=== PATIENT | male | born 1995 | race Caucasian/White ===

== ENCOUNTER 2019-03-20 10:37 | Emergency (ER) | payer SELFPAY ==
--- NOTE | 2019-03-20 11:24 | ER Document Report ---
ED General - General Chief Complaint: General Weakness Stated Complaint: GENERAL WEAKNESS Time Seen by Provider: 03/20/19 10:58 Mode of Arrival: Ambulatory Information source: Patient Notes: This 24-year-old male presents emergency department with reports that he just does not feel well. Reports he just moved to [place] from [place]. Reports he has history of drug abuse. Reports a history of drug abuse for the past few years. Was clean for about 5 months when he recently used methamphetamine IV 4 days ago. He reports since that time he has been falling asleep, doesn't feel well, also reports is hard to void. Patient reports he has been taking Suboxone but has been out of it for 2 days. He did go to [facility] prior to arrival. They advised him to come to the emergency department. Denies fever vomiting reports some diarrhea. TRAVEL OUTSIDE OF THE [place] IN LAST 30 DAYS: No - HPI Onset: Other Onset/Duration: Persistent Quality of pain: No pain Severity: None Pain Level: Denies Associated symptoms: None Exacerbated by: Denies Relieved by: Denies Similar symptoms previously: No Recently seen / treated by doctor: No - Related Data Allergies/Adverse Reactions: ketorolac [From Toradol] Allergy (Verified 03/20/19 10:37) Past Medical History - General Information source: Patient - Social History Smoking Status: Current Every Day Smoker Cigarette use (# per day): Yes Frequency of alcohol use: None Drug Abuse: Methamphetamine Lives with: Family Family History: None Patient has suicidal ideation: No Patient has homicidal ideation: No Psychiatric Medical History: Reports: Hx Depression Past Surgical History: Reports: Hx Vascular Surgery Review of Systems - Review of Systems Notes: Review HPI for review of systems., All other systems negative Physical Exam - Vital signs Vitals: Temp Pulse Resp BP Pulse Ox 97.8 F 80 18 131/81 H 98 03/20/19 10:40 03/20/19 10:40 03/20/19 10:40 03/20/19 10:40 03/20/19 10:40 - General General appearance: Appears well, Alert In distress: None - HEENT Head: Normocephalic, Atraumatic Eyes: Normal Conjunctiva: Normal Extraocular movements intact: Yes Eyelashes: Normal Pupils: PERRL Ears: Normal External canal: Normal Tympanic membrane: Normal Mouth/Lips: Normal Mucous membranes: Moist Pharynx: Normal Neck: Normal, Supple. No: Lymphadenopathy - Respiratory Respiratory status: No respiratory distress Chest status: Nontender Breath sounds: Normal Chest palpation: Normal - Cardiovascular Rhythm: Regular Heart sounds: Normal auscultation Murmur: No - Abdominal Inspection: Normal Distension: No distension Bowel sounds: Normal Tenderness: Nontender Organomegaly: No organomegaly - Back Back: Normal, Nontender - Extremities General upper extremity: Normal ROM, Normal strength General lower extremity: Normal ROM, Normal strength, Normal weight bearing - Neurological Neuro grossly intact: Yes Cognition: Normal Orientation: AAOx4 [place] Coma Scale Eye Opening: Spontaneous Faby Coma Scale Verbal: Oriented [place] Coma Scale Motor: Obeys Commands [place] Coma Scale Total: 15 Speech: Normal - Psychological Associated symptoms: Normal affect, Normal mood - Skin Skin Temperature: Warm Skin Moisture: Dry Skin Color: Normal Course - Re-evaluation Re-evalutation: 03/20/19 11:24 24-year-old male with history of drug abuse. Recent IV meth use. Reports he has not felt well since that time. Also reports he has been out of his Suboxone for 2 days. Patient was given written information on opioid drug rehab outpatient treatment center. He was instructed to call to set up an appointment to obtain his Suboxone. 03/20/19 12:29 Labs unremarkable. Patient was instructed on all results. Instructed follow-up with injectable treatment center. 03/20/19 12:30 Upon discharge patient reports he needs antibiotics for an abscess tooth. He reports he had the abscess tooth for 2 years. He has not been able to have it fixed. Would like antibiotics. Patient was instructed to follow-up with dental. He was instructed on the [facility]. Patient became upset stood up and walked out of the emergency department. 03/20/19 11:46 03/20/19 11:46 MCV 89 fl (80-97) 03/20/19 11:46 MCH 31.1 pg (27.0-33.4) 03/20/19 11:46 MCHC 35.0 g/dL (32.0-36.0) 03/20/19 11:46 RDW 13.9 % (11.5-14.0) 03/20/19 11:46 Seg Neutrophils % 43.8 % (42-78) 03/20/19 11:46 Chloride 101 mmol/L (98-107) 03/20/19 11:46 Carbon Dioxide 29 mmol/L (22-30) 03/20/19 11:46 Anion Gap 7 (5-19) 03/20/19 11:46 Est GFR ( Amer) > 60 (>60) 03/20/19 11:46 Glucose 103 mg/dL (75-110) 03/20/19 11:46 Calcium 9.3 mg/dL (8.4-10.2) 03/20/19 11:46 Total Bilirubin 0.2 mg/dL (0.2-1.3) 03/20/19 11:46 AST 70 U/L (17-59) H 03/20/19 11:46 Alkaline Phosphatase 62 U/L (38-126) 03/20/19 11:46 Total Protein 6.1 g/dL (6.3-8.2) L 03/20/19 11:46 Albumin 4.0 g/dL (3.5-5.0) 03/20/19 11:46 Urine Color YELLOW 03/20/19 11:00 Urine Appearance CLOUDY 03/20/19 11:00 Urine pH 7.0 (5.0-9.0) 03/20/19 11:00 Ur Specific [place] 1.016 03/20/19 11:00 Urine Protein NEGATIVE mg/dL (NEGATIVE) 03/20/19 11:00 Urine Glucose (UA) NEGATIVE mg/dL (NEGATIVE) 03/20/19 11:00 Urine Ketones NEGATIVE mg/dL (NEGATIVE) 03/20/19 11:00 Urine Blood NEGATIVE (NEGATIVE) 03/20/19 11:00 Urine Nitrite NEGATIVE (NEGATIVE) 03/20/19 11:00 Ur Leukocyte Esterase NEGATIVE (NEGATIVE) 03/20/19 11:00 Urine WBC (Auto) 0 /HPF 03/20/19 11:00 Urine RBC (Auto) 2 /HPF 03/20/19 11:00 03/20/19 15:20 - Vital Signs Vital signs: Temp Pulse Resp BP Pulse Ox 97.9 F 80 14 125/77 97 03/20/19 12:42 03/20/19 12:42 03/20/19 12:42 03/20/19 12:42 03/20/19 12:42 - Laboratory Result Diagrams: 03/20/19 11:46 03/20/19 11:46 Laboratory results interpreted by me: 03/20/19 11:46 Sodium 136.9 L AST 70 H Total Protein 6.1 L Discharge - Discharge Clinical Impression: Drug abuse Condition: Stable Disposition: HOME, SELF-CARE Additional Instructions: *You have been evaluated for not feeling well, history of drug abuse *Rest, stay hydrated *Follow up with the [facility] tomorrow *Return to ED for worsening condition, changes, needs Forms: Elevated Blood Pressure
[2019-03-20 11:29] LABS: AMORPHOUS SEDIMENT,URINE TRACE /HPF; APPEARANCE,URINE CLOUDY; BILIRUBIN,URINE NEGATIVE (NEGATIVE); COLOR,URINE YELLOW; GLUCOSE, URINE NEGATIVE (NEGATIVE); KETONES,URINE NEGATIVE (NEGATIVE); LEUKOCYTE ESTERASE,URINE NEGATIVE (NEGATIVE); NITRITE,URINE NEGATIVE (NEGATIVE); PROTEIN,URINE NEGATIVE (NEGATIVE); URINE SPECIFIC GRAVITY 1.016; UROBILINOGEN,URINE NEGATIVE mg/dL (<2.0)
[2019-03-20 11:44] LABS: URINE AMPHETAMINES SCREEN NEGATIVE; URINE BARBITURATES SCREEN NEGATIVE; URINE BENZODIAZEPINES SCREEN UNCONFIRMED POSITIVE; URINE COCAINE SCREEN NEGATIVE; URINE MARIJUANA (THC) SCREEN NEGATIVE; URINE METHADONE SCREEN NEGATIVE; URINE PHENCYCLIDINE SCREEN NEGATIVE
[2019-03-20 11:56] LABS: ABSOLUTE BASOPHILS # (AUTO) 0.1 10^3/uL (0.0-0.2); ABSOLUTE EOSINOPHILS # (AUTO) 0.2 10^3/uL (0.0-0.6); ABSOLUTE LYMPHOCYTES (AUTO) 3.1 10^3/uL (0.5-4.7); ABSOLUTE MONOCYTES (AUTO) 0.7 10^3/uL (0.1-1.4); ABSOLUTE NEUT (AUTO) 3.1 10^3/uL (1.7-8.2); BASOPHILS % (AUTO) 1.2 % (0-2); EOSINOPHILS % (AUTO) 2.4 % (0-6); LYMPHOCYTES % (AUTO) 43.1 % (13-45); MEAN CORPUSCULAR HEMOGLOBIN 31.1 pg (27.0-33.4); MEAN CORPUSCULAR VOLUME 89 fl (80-97); MONOCYTES % (AUTO) 9.5 % (3-13); PLATELET COUNT 173 10^3/uL (150-450); RED CELL DISTRIBUTION WIDTH 13.9 % (11.5-14.0); SEGMENTED NEUTROPHILS % (AUTO) 43.8 % (42-78); TOTAL CELLS COUNTED % (AUTO) 100 %; WHITE BLOOD COUNT 7.2 10^3/uL (4.0-10.5)
[2019-03-20 12:17] LABS: ALKALINE PHOSPHATASE 62 U/L (38-126); ANION GAP 7 (5-19); ASPARTATE AMINO TRANSFERASE 70 U/L (17-59); BILIRUBIN,DIRECT 0.1 mg/dL (0.0-0.4); BILIRUBIN,TOTAL 0.2 mg/dL (0.2-1.3); BLOOD UREA NITROGEN 18 mg/dL (7-20); CALCIUM 9.3 mg/dL (8.4-10.2); CARBON DIOXIDE 29 mmol/L (22-30); CHLORIDE 101 mmol/L (98-107); GLUCOSE 103 mg/dL (75-110); POTASSIUM 4.4 mmol/L (3.6-5.0); TOTAL PROTEIN 6.1 g/dL (6.3-8.2)
[2019-03-20 12:50] VITALS: BP 125/77
== END 2019-03-20 12:50 | disposition home or self-care (01) ==
LOC: ER 10:37
DX: F19.10 Other psychoactive substance abuse, uncomplicated (principal); R53.1 Weakness; F17.210 Nicotine dependence, cigarettes, uncomplicated
CPT/HCPCS: 36415; 80053; 80307; 81001; 85025; 99284

== ENCOUNTER 2019-03-24 22:12 | Emergency (ER) | payer SELFPAY | END 2019-03-24 23:15 | disposition left against medical advice (07) | LOC: ER 22:12 | DX: Z53.21 Procedure and treatment not carried out due to patient leaving prior to being seen by health care provider (principal) ==

== ENCOUNTER 2019-03-25 15:10 | Emergency (ER) | payer SELFPAY ==
[2019-03-25 15:19] VITALS: BP 138/53
--- NOTE | 2019-03-25 16:37 | ER Document Report ---
ED Medical Screen (RME) - General Chief Complaint: Urinary Problem Stated Complaint: URINARY ISSUE Time Seen by Provider: 03/25/19 16:23 Mode of Arrival: Ambulatory Information source: Patient Notes: 24-year-old male with history of IV drug use presents to the emergency department with complaints that he is unable to void. He reports he can void but he has to strain and only a little bit comes out. Patient denies testicular pain. He complains of lower abdominal pain. He denies fever vomiting diarrhea complains of a headache. Patient also reports peripheral edema. I have greeted and performed a rapid initial assessment of this patient. A comprehensive ED assessment and evaluation of the patient, analysis of test results and completion of the medical decision making process will be conducted by additional ED providers. Dictation of this chart was performed using voice recognition software; therefore, there may be some unintended grammatical errors. TRAVEL OUTSIDE OF THE U.S. IN LAST 30 DAYS: No - Related Data Allergies/Adverse Reactions: ketorolac [From Toradol] Allergy (Verified 03/25/19 15:16) Past Medical History Psychiatric Medical History: Reports: Hx Depression Past Surgical History: Reports: Hx Vascular Surgery Physical Exam - Vital signs Vitals: Temp Pulse Resp BP Pulse Ox 97.9 F 95 18 138/53 H 97 03/25/19 15:19 03/25/19 15:19 03/25/19 15:19 03/25/19 15:19 03/25/19 15:19 Course - Vital Signs Vital signs: Temp Pulse Resp BP Pulse Ox 97.9 F 95 18 138/53 H 97 03/25/19 15:19 03/25/19 15:19 03/25/19 15:19 03/25/19 15:19 03/25/19 15:19
[2019-03-25] MEDS ORDERED: IBUPROFEN 800 MG TABLET PO ONE (16:56)
[2019-03-25 17:01] LABS: ABSOLUTE BASOPHILS # (AUTO) 0.1 10^3/uL (0.0-0.2); ABSOLUTE EOSINOPHILS # (AUTO) 0.2 10^3/uL (0.0-0.6); ABSOLUTE LYMPHOCYTES (AUTO) 3.2 10^3/uL (0.5-4.7); ABSOLUTE MONOCYTES (AUTO) 1.1 10^3/uL (0.1-1.4); ABSOLUTE NEUT (AUTO) 6.7 10^3/uL (1.7-8.2); BASOPHILS % (AUTO) 0.5 % (0-2); HEMATOCRIT 40.8 % (37.9-51.0); HEMOGLOBIN 14.1 g/dL (13.5-17.0); MEAN CORPUSCULAR HEMOGLOBIN 30.7 pg (27.0-33.4); MEAN CORPUSCULAR HGB CONC 34.5 g/dL (32.0-36.0); MEAN CORPUSCULAR VOLUME 89 fl (80-97); MONOCYTES % (AUTO) 9.7 % (3-13); PLATELET COUNT 180 10^3/uL (150-450); RED BLOOD COUNT 4.58 10^6/uL (4.35-5.55); RED CELL DISTRIBUTION WIDTH 14.2 % (11.5-14.0); SEGMENTED NEUTROPHILS % (AUTO) 59.8 % (42-78); TOTAL CELLS COUNTED % (AUTO) 100 %; WHITE BLOOD COUNT 11.3 10^3/uL (4.0-10.5)
[2019-03-25 17:17] LABS: ALBUMIN 4.7 g/dL (3.5-5.0); ALKALINE PHOSPHATASE 84 U/L (38-126); ANION GAP 10 (5-19); ASPARTATE AMINO TRANSFERASE 135 U/L (17-59); BILIRUBIN,DIRECT 0.2 mg/dL (0.0-0.4); BILIRUBIN,TOTAL 0.5 mg/dL (0.2-1.3); BLOOD UREA NITROGEN 20 mg/dL (7-20); CARBON DIOXIDE 28 mmol/L (22-30); CHLORIDE 99 mmol/L (98-107); GLUCOSE 90 mg/dL (75-110); POTASSIUM 4.3 mmol/L (3.6-5.0); TOTAL PROTEIN 7.2 g/dL (6.3-8.2)
--- NOTE | 2019-03-25 18:04 | RADIOLOGY REPORT (SQ) ---
EXAM DESCRIPTION: U/S RETROPERITON (RENAL/AORTA) COMPLETED DATE/TIME: 03/25/2019 5:50 pm REASON FOR STUDY: difficulty voiding, low abd pain COMPARISON: None. TECHNIQUE: Grayscale images acquired of the kidneys and bladder and recorded on PACS. Additional williams ected color Doppler images recorded. LIMITATIONS: None. FINDINGS: RIGHT KIDNEY: Measures 10.8 cm in length. Normal echogenicity. No hydronephrosis. LEFT KIDNEY: Measures 11.5 cm in length. Normal echogenicity. No hydronephrosis. BLADDER: Pre-void volume was measured at 380 mL, post-void volume was measured at 259 mL. IMPRESSION: 1. No hydronephrosis. 2. High post-void residual volume, concerning for urinary retention. TECHNICAL DOCUMENTATION: JOB ID: [id number] 2010 [employer]- All Rights Reserved Reading location - IP/workstation name: [email or web address]
[2019-03-25 18:13] LABS: AMORPHOUS SEDIMENT,URINE TRACE /HPF; APPEARANCE,URINE CLOUDY; BILIRUBIN,URINE NEGATIVE (NEGATIVE); COLOR,URINE YELLOW; GLUCOSE, URINE NEGATIVE (NEGATIVE); KETONES,URINE NEGATIVE (NEGATIVE); LEUKOCYTE ESTERASE,URINE NEGATIVE (NEGATIVE); NITRITE,URINE NEGATIVE (NEGATIVE); PROTEIN,URINE 30 mg/dL (NEGATIVE); URINE SPECIFIC GRAVITY 1.015; UROBILINOGEN,URINE NEGATIVE mg/dL (<2.0)
--- NOTE | 2019-03-25 19:23 | ER Document Report ---
HPI - HPI Patient complains to provider of: urinary retention Time Seen by Provider: 03/25/19 16:23 Pain Level: 5 Context: 24 Yr old male pt with the listed pmh, here for abdominal pain for x days. no trauma or injury. no hx of diabetes or asthma. normal bms. no uti sx. no testicular pain/swelling, penile dc/rash/lesions, or concerns for stds. denies swelling or hx of hernias. no abd surgeries unless otherwise noted. no recent abx or steroids. hasn't taken anything for sx. no hx of gerd, gb dz, pancreatitis, gi bleed, ulcers, ibs, or crohns. no hx of this before. no sick contacts. no uri sx. no rash. no excessive nsaid use or etoh. no recent illness. pain not worse with eating. denies changes in color or caliber of stool. no other associated sx. - ROS Systems Reviewed and Negative: Yes All other systems reviewed and negative - To include 10 systems, unless mentioned in the hpi. Past Medical History - General Information source: Patient - Social History Smoking Status: Current Every Day Smoker Frequency of alcohol use: None Drug Abuse: Marijuana Family History: None Patient has suicidal ideation: No Patient has homicidal ideation: No Psychiatric Medical History: Reports: Hx Depression Past Surgical History: Reports: Hx Vascular Surgery Vertical Provider Document - CONSTITUTIONAL Notes: >>>> PHYSICAL_EXAM: GENERAL_APPEARANCE: well_nourished, alert, cooperative, no_acute_distress, no obvious_discomfort. Pleasant, smiling, speaking in full sentences, easily sitting up, in no sign of pain or resp distress, nontoxic VITALS: reviewed, see vital signs table. HEAD: normocephalic. atraumatic. no francois signs. no raccoon eyes. EYES: PERRL, EOMI, (-)scleral icterus. NOSE: no_nasal_discharge. MOUTH: (-)decreased moisture. THROAT: no_tonsilar_inflammation/hypertrophy/exudate. no lymphadenopathy NECK: supple, no_neck_tenderness, full rom. full strength. no meningeal signs. BACK: no_back_tenderness. CHEST_WALL: no_chest_tenderness. LUNGS: no_wheezing, (-)accessory muscle use, good air exchange bilateral. HEART: normal_rate, normal_rhythm,, ABDOMEN: normal_BS, soft, abdomen-diffuse non-tender, (-)guarding, (-)rebound, no distension or peritoneal signs. neg murphys. neg mcburneys. neg heel strike. neg obturator. neg psoas. neg rovsign. no cva tenderness GENITALS: no_testicular_tenderness/swelling, no_urethral_discharge, no_inguinal_hernia, no_ulcers_or_lesions on the genitals, no_lacerations on the genitals, penis and testicles otherwise wnl. exam chaperoned by ed nurse. pt consented to exam. exam without incident. RECTAL: deferred EXTREMITIES: strength 5/5 in all_extremities, good pulses in all_extremities, no_edema, no_swelling\tenderness. full rom. normal gait. brisk cap refill. good hand director [employer] services. SKIN: warm, dry, good_color, no _rash. no grossly visible overlying skin changes to suggest trauma unless otherwise noted. NEURO: motor_intact, sensory_intact. cranial nerves 2-12 intact, cerebellar fxn intact MENTAL_STATUS: normal_affect, speech_clear, oriented_X_3, responds_appropr iately to questions. - INFECTION CONTROL TRAVEL OUTSIDE OF THE U[place] IN LAST 30 DAYS: No Course - Re-evaluation Re-evalutation: 03/25/19 20:31 Pt here for . advised to f/u with pcp in 1-2 days. return for any worsening symptoms. vss. well appearing. satting well on ra. neurononfocal. pt understands and agrees to plan. On reexam, pt improved with tx listed. remained stable. nontoxic. well appearing. pain controlled. tolerating po. requesting to go home. case discussed with ER Attending, Dr. whitten, who directed and agrees with plan of care and advised no further workup indicated at this time and pt is stable for dc home with close f/u with pcp/specialist. Documentation achieved through voice recording which may lead to some occasional accidental typographical errors. Extensive efforts have been made to proof read documentation to make sure these are the least as possible. Category Date Time Status [place] Leg Bag (ED) NOW Care 03/25/19 20:18 Ordered Patient Education-Urinary Cath [RC] DAILY Care 03/25/19 20:19 Ordered Patient Education-Urinary Cath [RC] PRN Care 03/25/19 20:18 Ordered Urinary Cath Obs & Care [RC] QSHIFT Care 03/25/19 20:19 Ordered Urinary Cath Removal Criteria [RC] DAILY Care 03/25/19 20:19 Ordered Urinary Catheter Insertion [RC] NOW Care 03/25/19 20:[address] ABD/PELVIS NO ORAL OR IV [CT] Stat Exams 03/25/19 19:45 Completed U/S RETROPERITON (RENAL/AORTA) [US] Stat Exams 03/25/19 16:35 Completed CBC WITH DIFF [HEME] Stat Lab 03/25/19 16:46 Completed [facility] PCR URINE INHOUSE [MO] Stat Lab 03/25/19 19:21 Ordered CK [CREATINE KINASE] [CHEM] Stat Lab 03/25/19 20:18 Ordered COMPREHENSIVE METABOLIC PANEL [CHEM] Stat Lab 03/25/19 16:46 Completed URINALYSIS [URIN] Stat Lab 03/25/19 16:46 Completed URINE CULTURE [MC] Stat Lab 03/25/19 20:18 Uncollected URINE DRUG SCREEN [CHEM] Stat Lab 03/25/19 19:44 Uncollected Ibuprofen [Motrin 800 mg Tablet] Med 03/25/19 16:56 Discontinued 800 mg PO NOW ONE Lidocaine HCl [Xylocaine 2% Uro-Jet 5 ml Kit] Med 03/25/19 20:30 Once 5 ml MM NOW ONE Lidocaine/Tetracaine/Epi [L.e.t. Topical Soln 5 ml] Med 03/25/19 20:29 Discontinued 5 ml TOP NOW ONE 03/25/19 20:50 - Vital Signs Vital signs: Temp Pulse Resp BP Pulse Ox 97.9 F 95 18 138/53 H 97 03/25/19 15:19 03/25/19 15:19 03/25/19 15:19 03/25/19 15:19 03/25/19 15:19 03/25/19 20:50 Temp Pulse Resp BP Pulse Ox 03/25/19 15: 97.9 F 95 18 138/53 H 97 - Laboratory Result Diagrams: 03/25/19 16:46 03/25/19 16:46 Laboratory results interpreted by me: 03/25/19 03/25/19 03/25/19 16:46 16:46 16:46 WBC 11.3 H RDW 14.2 H AST 135 H Urine Protein 30 H Urine Blood SMALL H 03/25/19 20:50 Labs- Entire Visit 03/25/19 03/25/19 03/25/19 16:46 16:46 16:46 WBC 11.3 H RBC 4.58 Hgb 14.1 Hct 40.8 MCV 89 MCH 30.7 MCHC 34.5 RDW 14.2 H Plt Count 180 Lymph % (Auto) 28.0 [place] % (Auto) 9.7 Eos % (Auto) 2.0 Baso % (Auto) 0.5 Absolute Neuts (auto) 6.7 Absolute Lymphs (auto) 3.2 Absolute Monos (auto) 1.1 Absolute Eos (auto) 0.2 Absolute Basos (auto) 0.1 Seg Neutrophils % 59.8 Sodium 137.0 Potassium 4.3 Chloride 99 Carbon Dioxide 28 Anion Gap 10 BUN 20 Creatinine 0.65 Est GFR ( Amer) > 60 Est GFR (MDRD) Non-Af > 60 Glucose 90 Calcium 10.0 Total Bilirubin 0.5 Direct Bilirubin 0.2 Neonat Total Bilirubin Not Reportable Neonat Direct Bilirubin Not Reportable Neonat Indirect Bili Not Reportable AST 135 H ALT 268 Alkaline Phosphatase 84 Creatine Kinase Total Protein 7.2 Albumin 4.7 Urine Color YELLOW Urine Appearance CLOUDY Urine pH 7.0 Ur Specific [place] 1.015 Urine Protein 30 H Urine Glucose (UA) NEGATIVE Urine Ketones NEGATIVE Urine Blood SMALL H Urine Nitrite NEGATIVE Urine Bilirubin NEGATIVE Urine Urobilinogen NEGATIVE Ur Leukocyte Esterase NEGATIVE Urine RBC (Auto) 44 Squamous Epi Cells Auto 1 Amorphous Sediment Auto TRACE Urine Mucus (Auto) RARE Urine Ascorbic Acid NEGATIVE 03/25/19 16:46 WBC RBC Hgb Hct MCV MCH MCHC RDW Plt Count Lymph % (Auto) [place] % (Auto) Eos % (Auto) Baso % (Auto) Absolute Neuts (auto) Absolute Lymphs (auto) Absolute Monos (auto) Absolute Eos (auto) Absolute Basos (auto) Seg Neutrophils % Sodium Potassium Chloride Carbon Dioxide Anion Gap BUN Creatinine Est GFR ( Amer) Est GFR (MDRD) Non-Af Glucose Calcium Total Bilirubin Direct Bilirubin Neonat Total Bilirubin Neonat Direct Bilirubin Neonat Indirect Bili AST ALT Alkaline Phosphatase Creatine Kinase 378 H Total Protein Albumin Urine Color Urine Appearance Urine pH Ur Specific [place] Urine Protein Urine Glucose (UA) Urine Ketones Urine Blood Urine Nitrite Urine Bilirubin Urine Urobilinogen Ur Leukocyte Esterase Urine RBC (Auto) Squamous Epi Cells Auto Amorphous Sediment Auto Urine Mucus (Auto) Urine Ascorbic Acid - Diagnostic Test Radiology reviewed: Image reviewed, Reports reviewed Radiology results interpreted by me: 03/25/19 20:50 Labs- Entire Visit 03/25/19 03/25/19 03/25/19 16:46 16:46 16:46 WBC 11.3 H RBC 4.58 Hgb 14.1 Hct 40.8 MCV 89 MCH 30.7 MCHC 34.5 RDW 14.2 H Plt Count 180 Lymph % (Auto) 28.0 [place] % (Auto) 9.7 Eos % (Auto) 2.0 Baso % (Auto) 0.5 Absolute Neuts (auto) 6.7 Absolute Lymphs (auto) 3.2 Absolute Monos (auto) 1.1 Absolute Eos (auto) 0.2 Absolute Basos (auto) 0.1 Seg Neutrophils % 59.8 Sodium 137.0 Potassium 4.3 Chloride 99 Carbon Dioxide 28 Anion Gap 10 BUN 20 Creatinine 0.65 Est GFR ( Amer) > 60 Est GFR (MDRD) Non-Af > 60 Glucose 90 Calcium 10.0 Total Bilirubin 0.5 Direct Bilirubin 0.2 Neonat Total Bilirubin Not Reportable Neonat Direct Bilirubin Not Reportable Neonat Indirect Bili Not Reportable AST 135 H ALT 268 Alkaline Phosphatase 84 Creatine Kinase Total Protein 7.2 Albumin 4.7 Urine Color YELLOW Urine Appearance CLOUDY Urine pH 7.0 Ur Specific [place] 1.015 Urine Protein 30 H Urine Glucose (UA) NEGATIVE Urine Ketones NEGATIVE Urine Blood SMALL H Urine Nitrite NEGATIVE Urine Bilirubin NEGATIVE Urine Urobilinogen NEGATIVE Ur Leukocyte Esterase NEGATIVE Urine RBC (Auto) 44 Squamous Epi Cells Auto 1 Amorphous Sediment Auto TRACE Urine Mucus (Auto) RARE Urine Ascorbic Acid NEGATIVE 03/25/19 16:46 WBC RBC Hgb Hct MCV MCH MCHC RDW Plt Count Lymph % (Auto) [place] % (Auto) Eos % (Auto) Baso % (Auto) Absolute Neuts (auto) Absolute Lymphs (auto) Absolute Monos (auto) Absolute Eos (auto) Absolute Basos (auto) Seg Neutrophils % Sodium Potassium Chloride Carbon Dioxide Anion Gap BUN Creatinine Est GFR ( Amer) Est GFR (MDRD) Non-Af Glucose Calcium Total Bilirubin Direct Bilirubin Neonat Total Bilirubin Neonat Direct Bilirubin Neonat Indirect Bili AST ALT Alkaline Phosphatase Creatine Kinase 378 H Total Protein Albumin Urine Color Urine Appearance Urine pH Ur Specific [place] Urine Protein Urine Glucose (UA) Urine Ketones Urine Blood Urine Nitrite Urine Bilirubin Urine Urobilinogen Ur Leukocyte Esterase Urine RBC (Auto) Squamous Epi Cells Auto Amorphous Sediment Auto Urine Mucus (Auto) Urine Ascorbic Acid Discharge - Discharge Clinical Impression: Urinary retention, Renal stone, History of intravenous drug abuse, Elevated CK, Elevated liver enzymes, Eloped from emergency department Abdominal pain Qualifiers: Abdominal location: lower abdomen, unspecified Qualified Code(s): R10.30 - Lower abdominal pain, unspecified Leukocytosis Qualifiers: Leukocytosis type: unspecified Qualified Code(s): D72.829 - Elevated white b lood cell count, unspecified Condition: Good Disposition: HOME, SELF-CARE Instructions: Abdominal Pain ([facility]), Bulk Laxatives, Constipation ([facility]) Additional Instructions: Return to the emergency department if you change your mind for further work-up.
--- NOTE | 2019-03-25 20:06 | RADIOLOGY REPORT (SQ) ---
EXAM DESCRIPTION: CT ABD/PELVIS NO ORAL OR IV COMPLETED DATE/TIME: 03/25/2019 7:53 pm REASON FOR STUDY: urinary retention, suprapubic pain, hematuria COMPARISON: None. TECHNIQUE: CT scan of the abdomen and pelvis performed without intravenous or oral contrast. Images reviewed with lung, soft tissue, and bone windows. Reconstructed coronal and sagittal MPR images revi ewed. All images stored on PACS. All CT scanners at this facility use dose modulation, iterative reconstruction, and/or weight based d osing when appropriate to reduce radiation dose to as low as reasonably achievable (ALARA). [facility]: Dose Right [facility]: CareDose [facility]: Dose Right [facility]: Teradose 4D [facility]: Cream Style RADIATION DOSE: 249 mGy cm LIMITATIONS: None. FINDINGS: LOWER CHEST: No significant findings. No nodules or infiltrates. NON-CONTRASTED LIVER, SPLEEN, ADRENALS: Evaluation limited by lack of IV contrast. No identified sign ificant masses. PANCREAS: No masses. No peripancreatic inflammatory changes. GALLBLADDER: No identified stones by CT criteria. No inflammatory changes to suggest cholecystitis. RIGHT KIDNEY AND URETER: No suspicious masses. Assessment limited by lack of IV contrast. No signif icant calcifications. No hydronephrosis or hydroureter. LEFT KIDNEY AND URETER: No suspicious masses. Assessment limited by lack of IV contrast. There is a 3 mm calculus in the vicinity of the distal left ureter, possibly a nonobstructive calculus. There i s a 1.0 cm calculus in the vicinity of the distal left ureter, likely a phlebolith. Punctuate nonobs tructive left renal calculus. No hydronephrosis or hydroureter. AORTA AND RETROPERITONEUM: No aneurysm. No retroperitoneal masses or adenopathy. BOWEL AND PERITONEAL CAVITY: No obvious masses or inflammatory changes. No free fluid. Unusually lar ge burden of stool in the colon with dense stool balls in the descending colon and rectum. APPENDIX: Normal. PELVIS, BLADDER, AND ABDOMINAL WALL:No abnormal masses. No free fluid. Mildly distended urinary blad jelani. BONES: No significant findings. OTHER: No other significant finding. IMPRESSION: 1. Unusually large burden of stool in the colon with dense stool balls in the descendin g colon and rectum. 2. Mildly distended urinary bladder. No obvious obstructing etiology identified on noncontrast CT e xamination. 3. There is a 3 mm calculus in the vicinity of the distal left ureter, possibly a nonobstructive dangelo culus. There is a 1.0 cm calculus in the vicinity of the distal left ureter, likely a phlebolith. Pu nctuate nonobstructive left renal calculus. No evidence of hydronephrosis. This could be further ev aluated by contrast-enhanced urogram or follow-up CT. COMMENT: Quality ID # [id number]: Final reports with documentation of one or more dose reduction techniques (e.g., Automated exposure control, adjustment of the mA and/or kV according to patient size, use of iterative reconstruction technique) TECHNICAL DOCUMENTATION: JOB ID: [id number]- All Rights Reserved Reading location - IP/workstation name: [email or web address]
[2019-03-25] MEDS ORDERED: LIDOCAINE 4%/TETRACAINE 0.5%/EPI 0.18% 5 ML TOPICAL SOLN TOP ONE (20:29)
[2019-03-25] MEDS ORDERED: LIDOCAINE 2% URO-JET 5 ML KIT MM ONE (20:30)
[2019-03-25 21:18] LABS: URINE AMPHETAMINES SCREEN UNCONFIRMED POSITIVE; URINE BARBITURATES SCREEN NEGATIVE; URINE BENZODIAZEPINES SCREEN UNCONFIRMED POSITIVE; URINE COCAINE SCREEN NEGATIVE; URINE MARIJUANA (THC) SCREEN NEGATIVE; URINE METHADONE SCREEN NEGATIVE; URINE PHENCYCLIDINE SCREEN NEGATIVE
== END 2019-03-25 21:03 | disposition home or self-care (01) ==
LOC: ER 15:10
DX: N20.0 Calculus of kidney (principal); R33.9 Retention of urine, unspecified; R74.8 Abnormal levels of other serum enzymes; R10.30 Lower abdominal pain, unspecified; D72.829 Elevated white blood cell count, unspecified; R10.9 Unspecified abdominal pain; F17.200 Nicotine dependence, unspecified, uncomplicated
CPT/HCPCS: 36415; 74176; 76770; 80053; 80307; 81001; 82550; 85025; 87086; 99281